=== PATIENT | male | born 1960 | race Caucasian/White ===

== ENCOUNTER 2024-09-11 16:30 | Emergency (ER) | payer MEDICARE, SELFPAY ==
[2024-09-11 16:32] VITALS: BP 111/74; PULSE 127; RESP 20; TEMP 36.6; O2SAT 100
--- NOTE | 2024-09-11 16:43 | ECG_ITS ---
Test Date: 2024-09-11 16:57:45 Measurements Intervals [place] Rate: 117 P: 62 IN: 145 QRS: -22 QRSD: 90 T: 95 QT: 341 QTc: 476 Interpretive Statements SINUS TACHYCARDIA WITH OCCASIONAL SUPRAVENTRICULAR PREMATURE COMPLEXES ST-T WAVE ABNORMALITY IN LATERAL LEADS- CONSIDER ISCHEMIA BASELINE ARTIFACT- II, AVL, AVF, V4-V6 ABNORMAL ECG No previous ECG available for comparison Electronically Signed On 09-13-2024 07:08:13 CDT by Greg Crespo D.O.
--- NOTE | 2024-09-11 17:07 | ED_ITS ---
HPI - SOB/Dyspnea General Chief Complaint: Shortness of Breath/Dyspnea Stated Complaint: Shortness of Breath Time Seen by Provider: 09/11/24 16:45 Source: patient, family and RN notes reviewed Mode of arrival: ambulatory Limitations: no limitations History of Present Illness HPI Narrative: 64-year-old male presents Express Care complaining of shortness of breath for last 7 months. Patient said it got worse today while he was outside in the heat. Patient says he feels short of breath at rest and is worse with movement. Patient reports having a slight cough. Patient states he is dizzy when he is up moving around with the shortness of breath. Patient denies any fevers, body aches, chills, upper respiratory symptoms, chest pain, or any other symptoms. Patient states he has a history of hypertension, diabetes. Patient Is a former smoker. Patient denies any history of asthma or COPD. Patient patient states he has not seen his doctor since he has . Related Data Home Medications ?Medication ?Instructions ?Recorded ?Confirmed ?Last Taken ?Type No Home Medications 09/11/24 09/11/24 Unknown History Allergies Allergy/AdvReac Type Severity Reaction Status Date / Time No Known Allergies Allergy Verified 09/11/24 17:38 Review of Systems Review of Systems: CONSTITUTIONAL: Denies fever, chills, or sweats. EYES: Denies visual changes, redness, or discharge. ENT: Denies rhinorrhea, congestion, sore throat, or otalgia. CARDIOVASCULAR: Denies chest pain, palpitations, lightheadedness, syncope, presyncope or edema. Positive for dizziness. RESPIRATORY: Positive for dyspnea, respiratory distress, cough. GASTROINTESTINAL: Denies abdominal pain, nausea, vomiting, or diarrhea. GENITOURINARY: Denies dysuria or hematuria. SKIN: Denies rash or itching. MUSCULOSKELETAL: Denies back pain, joint pain, or myalgia. NEUROLOGIC: Denies headache, numbness, or weakness. PSYCHIATRIC: Denies anxiety or depression. All other systems reviewed are negative, except as documented in HPI. PMFSH Comments At the time of my signature, I reviewed and agree with the nursing past medical, surgical, social, and family history. There is no relevant family history pertinent to the patient complaint. Exam Narrative: GENERAL: This is a well-nourished, well-developed adult. Patient is nontoxic appearing. Patient is ill-appearing and appears in mild distress. HEAD: normocephalic, atraumatic. EYES: Sclera clear/white. Conjunctiva normal. Vision is grossly intact. Extraocular movements intact EARS: External ears normal, Hearing grossly intact. NOSE: External nose normal THROAT: Mucous membranes moist, NECK: Neck supple, non-tender without lymphadenopathy, masses or thyromegaly. CARDIOVASCULAR: Tachycardic rate and rhythm without murmurs, gallops, or rubs. RESPIRATORY: Lung sounds are diminished bilaterally. Breath sounds equal jairo aterally. No wheezes, rales, or rhonchi. Respiratory rate is tachypneic, respiratory effort labored, intercostal retractions present. Patient is able to speak in full sentences. SKIN: warm, Dry, intact with no suspicious lesions or rash, good texture and turgor. NEURO: awake, alert, and oriented to person, place and time. There were no obvious focal neurologic abnormalities. EXTREMITIES: No joint tenderness, effusion, or edema noted. Course Course Emergency Course: Portions of this record may have been created with voice recognition software Level of Care: Express Care Visit Vital Signs Vital signs: Vital Signs Temperature 98 F 09/11/24 16:32 Pulse Rate 127 H 09/11/24 16:32 Respiratory Rate 20 09/11/24 16:32 Blood Pressure 111/74 09/11/24 16:32 Pulse Oximetry 100 09/11/24 16:32 Oxygen Delivery Room Air 09/11/24 16:32 Temperature 98 F 09/11/24 16:32 Pulse Rate 127 H 09/11/24 16:32 Respiratory Rate 20 09/11/24 16:32 Blood Pressure 111/74 09/11/24 16:32 Pulse Oximetry 100 09/11/24 16:32 Oxygen Delivery Room Air 09/11/24 16:32 Reviewed Transfer Transfered to: [facility] Transportation: ALS Transfer rationale: Higher level care, respiratory distress, shortness of breath Accepting physician: Dr. Wade MDM - SOB/Dyspnea MDM Narrative Medical decision making narrative: EKG is sinus tachycardia with nonspecific ST changes otherwise unremarkable. Patient appears in respiratory distress. No evidence or wheezing to suggest benefit from albuterol. Patient O2 saturation is 100%. Patient denies any history of COPD or asthma. Given patient's symptoms, it is recommend the patient seek a higher level care and proceed immediately to the emergency department. Patient is agreeable to go to [facility] ER. Followed [facility] ER and spoke to Araceli RODGERS whose is aware of this patient and Dr. Wade accepted this patient for transfer. Patient is hemodynamically stable and stable for transfer. Patient is agreeable to go via [facility] ambulance. EMS was called. Differential Diagnosis Differential diagnosis: Likely acute exacerbation of chronic obstructive airways disease, congestive heart failure, community acquired pneumonia and pulmonary embolism ECG Data EKG #1: Attestation: I personally reviewed and interpreted this ECG as follows: ECG completion date: 09/11/24 ECG completion time: 16:57 Prior ECG tracings: not available for review EKG Interpretation: tachycardia, sinus rhythm, PACs, non-specific ST changes and normal QRS Critical Care Time Critical Care Time Critical Care Time: No Discharge Plan Discharge Clinical Impression: Acute respiratory distress, Shortness of breath Patient Disposition: Acute Care Hospital Condition: Stable Patient Language: Ethiopian Prescriptions: No Action No Home Medications Follow-up/Referrals: PHYSICIAN,[employer] [Primary Care Provider] - Time of Disposition: 17:13
== END 2024-09-11 17:25 | disposition short-term general hospital (02) ==
DX: R06.03 Acute respiratory distress (principal); R06.02 Shortness of breath
CPT/HCPCS: 93005; 99205; G0463